=== PATIENT | male | born 1980 | race Caucasian/White ===

== ENCOUNTER 2020-12-16 13:33 | Inpatient (IN) | payer OTHER ==
[2020-12-16 15:34] VITALS: BMI 30.1
[2020-12-16] MEDS ORDERED: methaDONE HCL 10 MG TABLET PO SCH (18:45)
[2020-12-16] MEDS ORDERED: METHOCARBAMOL 500 MG TABLET PO PRN (18:49)
[2020-12-16] MEDS ORDERED: BISMUTH SUBSALICYLATE 524 MG/30 ML PO PRN (18:49)
[2020-12-16] MEDS ORDERED: MENTHOL/PHENOL 1 EACH UD MM PRN (18:49)
[2020-12-16] MEDS ORDERED: ONDANSETRON *ODT* 4 MG TABLET SL PRN (18:49)
[2020-12-16] MEDS ORDERED: LORazepam 2 MG TABLET PO ONE (18:49)
[2020-12-16] MEDS ORDERED: MAG HYDROX/AL HYDROX/SIMETH 30 ML UNIT-DOSE CUP PO PRN (18:49)
[2020-12-16] MEDS ORDERED: ACETAMINOPHEN 325 MG TABLET (FP) PO PRN ×2 (18:49)
[2020-12-16] MEDS ORDERED: MAGNESIUM HYDROX 2400MG/30ML ORAL SUSPENSION 30 ML CUP PO PRN (18:49)
[2020-12-16] MEDS ORDERED: IBUPROFEN 400 MG TABLET (FP) PO PRN (18:49)
[2020-12-16] MEDS ORDERED: NICOTINE POLACRILEX 4 MG GUM BUC PRN (18:49)
[2020-12-16] MEDS ORDERED: MAGNESIUM CITRATE 300 ML BOTTLE PO PRN (18:49)
[2020-12-16] MEDS ORDERED: methaDONE HCL 10 MG TABLET PO ONE (19:03)
[2020-12-16] MEDS ORDERED: methaDONE HCL 10 MG TABLET (FOR DETOX USE ONLY) ONE (19:10)
[2020-12-16] MEDS ORDERED: methaDONE HCL 40 MG DISPERSABLE TABLET PO ONE (22:00)
[2020-12-16] MEDS: LORazepam 2 MG TABLET PO SCH (22:05)
[2020-12-16] MEDS: hydrOXYzine PAMOATE 25 MG CAPSULE (FP) PO SCH (22:05)
[2020-12-16] MEDS: MELATONIN 5 MG TABLETS PO SCH (22:05)
[2020-12-16] MEDS: PRENATAL VITAMINS W/ FOLIC ACID TABLET (FP) PO SCH (22:06)
[2020-12-16] MEDS: THIAMINE HCL 100 MG TABLET (FP) PO SCH (22:07)
[2020-12-16] MEDS: cloNIDine HCL 0.1 MG TABLET PO SCH (22:07)
[2020-12-17] MEDS: hydrOXYzine PAMOATE 25 MG CAPSULE (FP) PO SCH ×5 (05:37→22:18)
[2020-12-17] MEDS ORDERED: methaDONE HCL 40 MG DISPERSABLE TABLET ONE (06:17)
[2020-12-17] MEDS ORDERED: methaDONE HCL 10 MG TABLET ONE (06:17)
[2020-12-17] MEDS: methaDONE 240 MG, methaDONE 30 MG PO SCH (06:45)
[2020-12-17] MEDS: LORazepam 1 MG TABLET PO PRN (07:59)
[2020-12-17] MEDS: LORazepam 2 MG TABLET PO SCH ×4 (08:07→22:17)
[2020-12-17] MEDS: cloNIDine HCL 0.1 MG TABLET PO SCH ×2 (10:41→22:17)
[2020-12-17] MEDS: PRENATAL VITAMINS W/ FOLIC ACID TABLET (FP) PO SCH (10:42)
[2020-12-17] MEDS ORDERED: methaDONE HCL 40 MG DISPERSABLE TABLET PO SCH (19:00)
[2020-12-17] MEDS: THIAMINE HCL 100 MG TABLET (FP) PO SCH (22:20)
[2020-12-17] MEDS: MELATONIN 5 MG TABLETS PO SCH (22:21)
[2020-12-17] MEDS: SUVOREXANT 10 MG TABLET PO PRN (22:23)
[2020-12-18] MEDS ORDERED: methaDONE HCL 10 MG TABLET ONE (04:16)
[2020-12-18] MEDS ORDERED: methaDONE HCL 40 MG DISPERSABLE TABLET ONE (04:17)
[2020-12-18] MEDS: methaDONE 240 MG, methaDONE 30 MG PO SCH (05:34)
[2020-12-18] MEDS: LORazepam 1 MG TABLET PO SCH ×4 (05:34→22:17)
[2020-12-18] MEDS: hydrOXYzine PAMOATE 25 MG CAPSULE (FP) PO SCH ×5 (05:35→22:16)
[2020-12-18] MEDS: LORazepam 1 MG TABLET PO PRN (09:09)
[2020-12-18] MEDS: cloNIDine HCL 0.1 MG TABLET PO SCH ×2 (10:29→22:16)
[2020-12-18] MEDS: PRENATAL VITAMINS W/ FOLIC ACID TABLET (FP) PO SCH (10:29)
[2020-12-18] MEDS: NICOTINE 10 MG CARTRIDGE (INHALER) IH PRN (11:21)
[2020-12-18] MEDS: SUVOREXANT 10 MG TABLET PO PRN (22:15)
[2020-12-18] MEDS: MELATONIN 5 MG TABLETS PO SCH (22:16)
[2020-12-18] MEDS: THIAMINE HCL 100 MG TABLET (FP) PO SCH (22:16)
[2020-12-19] MEDS ORDERED: LORazepam 0.5 MG TABLET PO PRN
[2020-12-19] MEDS ORDERED: methaDONE HCL 10 MG TABLET ONE (04:06)
[2020-12-19] MEDS ORDERED: methaDONE HCL 40 MG DISPERSABLE TABLET ONE (04:07)
[2020-12-19] MEDS: methaDONE 240 MG, methaDONE 30 MG PO SCH (05:31)
[2020-12-19] MEDS: LORazepam 0.5 MG TABLET PO SCH ×4 (05:36→22:15)
[2020-12-19] MEDS: hydrOXYzine PAMOATE 25 MG CAPSULE (FP) PO SCH ×5 (07:23→22:15)
[2020-12-19] MEDS: PRENATAL VITAMINS W/ FOLIC ACID TABLET (FP) PO SCH (10:14)
[2020-12-19] MEDS: cloNIDine HCL 0.1 MG TABLET PO SCH ×2 (10:14→22:16)
[2020-12-19 10:21] LABS: HEMATOCRIT 38.6 % (35.4-49); HEMOGLOBIN 12.8 GM/dL (11.7-16.9); MCH 30.6 pg (25.7-33.7); MCHC 33.3 g/dl (32.0-35.9); MEAN CELL VOLUME 91.9 fl (80-96); MEAN PLT VOLUME 10.3 fl (7.5-11.1); PLATELET COUNT 193 10^3/uL (134-434); RDW 12.8 % (11.9-15.9); WHITE BLOOD COUNT 7.2 K/mm3 (4.0-10.0)
[2020-12-19 12:41] LABS: BLOOD UREA NITROGEN 8.6 mg/dL (7-18)
[2020-12-19 12:43] LABS: BILIRUBIN,TOTAL 0.4 mg/dL (0.2-1); CALCIUM 8.6 mg/dL (8.5-10.1); TOT PROT 6.6 g/dl (6.4-8.2)
[2020-12-19 12:44] LABS: ALBUMIN 3.2 g/dl (3.4-5.0)
[2020-12-19] MEDS: THIAMINE HCL 100 MG TABLET (FP) PO SCH (22:16)
[2020-12-19] MEDS: MELATONIN 5 MG TABLETS PO SCH (22:16)
[2020-12-19] MEDS: SUVOREXANT 10 MG TABLET PO PRN (22:17)
[2020-12-20] MEDS ORDERED: methaDONE HCL 10 MG TABLET ONE (04:00)
[2020-12-20] MEDS ORDERED: methaDONE HCL 40 MG DISPERSABLE TABLET ONE (04:01)
[2020-12-20] MEDS ORDERED: LORazepam 0.5 MG TABLET PO ONE (05:00)
[2020-12-20] MEDS: methaDONE 240 MG, methaDONE 30 MG PO SCH (05:53)
[2020-12-20] MEDS: hydrOXYzine PAMOATE 25 MG CAPSULE (FP) PO SCH ×2 (05:54→11:07)
[2020-12-20] MEDS: NICOTINE 10 MG CARTRIDGE (INHALER) IH PRN (06:03)
[2020-12-20 08:56] VITALS: TEMP 96.8
[2020-12-20] MEDS: cloNIDine HCL 0.1 MG TABLET PO SCH (11:07)
[2020-12-20] MEDS: PRENATAL VITAMINS W/ FOLIC ACID TABLET (FP) PO SCH (11:07)
[2020-12-20] MEDS ORDERED: ALBUTEROL SO4 HFA INHALER IH PRN (12:53)
[2020-12-20 12:54] VITALS: BP 119/74; PULSE 84
[2020-12-20] MEDS ORDERED: levETIRAcetam 500 MG TABLET (FP) PO SCH (13:00)
== END 2020-12-20 13:42 | disposition home or self-care (01) | DRG 773 ==
LOC: YASAS 13:33 → Y3N 19:19
PROVIDERS: ADMIT Allergy & Immunology; ATTEND Allergy & Immunology
PROC: HZ2ZZZZ Detoxification Services for Substance Abuse Treatment (ICD-10-PCS; principal; 2020-12-16)
DX: F13.230 Sedative, hypnotic or anxiolytic dependence with withdrawal, uncomplicated (principal); F11.20 Opioid dependence, uncomplicated; F10.20 Alcohol dependence, uncomplicated; F14.20 Cocaine dependence, uncomplicated; F12.20 Cannabis dependence, uncomplicated; F19.282 Other psychoactive substance dependence with psychoactive substance-induced sleep disorder; F19.280 Other psychoactive substance dependence with psychoactive substance-induced anxiety disorder; F19.24 Other psychoactive substance dependence with psychoactive substance-induced mood disorder; F43.21 Adjustment disorder with depressed mood; F41.9 Anxiety disorder, unspecified; F32.9 Major depressive disorder, single episode, unspecified; G47.00 Insomnia, unspecified; I10 Essential (primary) hypertension; J45.909 Unspecified asthma, uncomplicated; E05.90 Thyrotoxicosis, unspecified without thyrotoxic crisis or storm; R56.9 Unspecified convulsions; Z91.5 Personal history of self-harm
CPT/HCPCS: 36415; 80053; 85027; 86780; C9803; J0735; U0003; U0005